=== PATIENT | female | born 1955 | race Caucasian/White ===

== ENCOUNTER 2018-05-17 13:00 | Outpatient (CLI) | payer BC ==
[2018-05-17] MEDS ORDERED: SINCALIDE 5 MCG VIAL ONE (14:05)
[2018-05-17] MEDS ORDERED: SODIUM CHLORIDE 0.9% IV ONE (16:01)
[2018-05-17] MEDS ORDERED: SINCALIDE IV ONE (16:01)
--- NOTE | 2018-05-17 16:26 | Nuclear Medicine Report ---
Reason: POLYP,GALLBLADDER Procedure Date: 05/17/2018 Accession Number: [id number] / [id number] Procedure: NM - Hepatobiliary HIDA w/ Rx CPT Code: FULL RESULT: EXAM: HEPATOBILIARY SCAN WITH CCK/KINEVAC ADMINISTRATION EXAM DATE: 05/17/2018 03:42 PM. CLINICAL HISTORY: POLYP,GALLBLADDER. COMPARISON: None available. TECHNIQUE: Following the intravenous administration of 5.2 mCi of Tc99m Mebrofenin, a hepatobiliary scan was done centered on the liver and gallbladder in multiple sequential images and projections. Following the intravenous administration of 1.45 mcg of CCK/ Kinevac over the course of approximately 60 minutes, dynamic imaging was done and the gallbladder ejection fraction was calculated. FINDINGS: Normal extraction of tracer from the blood pool indicating normal hepatocellular function. The liver size and shape is grossly within normal limits. There is activity visualized in the bile ducts, gallbladder, and small bowel during the first hour. With CCK administration, the gallbladder demonstrates an effective contraction. The gallbladder ejection fraction is calculated to be 92%, well above the lower limit of normal of 38% for a 60-minute injection. The patient reported very little discomfort during CCK administration. No evidence of enteric reflux into the stomach. No significant collection of tracer remaining in the common bile duct by the end of the study. IMPRESSION: 1. Patent cystic duct. 2. Patent common bile duct. 3. Negative for acute or chronic cholecystitis. 4. No enterogastric bile reflux. 5. Gallbladder ejection fraction of 92%. RADIA
== END 2018-05-17 13:01 | disposition home or self-care (01) ==
LOC: DI 13:00
PROVIDERS: ATTEND Family Medicine
DX: K82.8 Other specified diseases of gallbladder (principal)
CPT/HCPCS: 78227; J7040

== ENCOUNTER 2018-11-24 08:00 | Outpatient (CLI) | payer BC ==
[2018-11-24 08:05] LABS: BASOPHILS # (AUTO) 0.1 10^3/uL (0.0-0.1); BASOPHILS % (AUTO) 1.1 %; EOSINOPHILS # (AUTO) 0.2 10^3/uL (0.0-0.7); EOSINOPHILS % (AUTO) 3.2 %; HGB - HEMOGLOBIN 12.4 g/dL (12.0-16.0); LYMPHOCYTES # (AUTO) 1.6 10^3/uL (1.5-3.5); LYMPHOCYTES % (AUTO) 29.3 %; MEAN CORPUSCULAR HEMOGLOBIN 31.2 pg (27.0-31.0); MEAN CORPUSCULAR HGB CONC 33.4 g/dL (32.0-36.0); MEAN CORPUSCULAR VOLUME 93.2 fL (81.0-99.0); MEAN PLATELET VOLUME 9.2 fL (7.9-10.8); MONOCYTES # (AUTO) 0.5 10^3/uL (0.0-1.0); MONOCYTES % (AUTO) 8.8 %; NEUTROPHILS # (AUTO) 3.1 10^3/uL (1.5-6.6); PLT - PLATELET COUNT 260 10^3/uL (130-450); RED BLOOD COUNT 3.98 10^6/uL (4.20-5.40); WHITE BLOOD COUNT 5.4 x10^3/uL (4.8-10.8)
[2018-11-24 08:19] LABS: ALBUMIN 3.8 g/dL (3.2-5.5); ALBUMIN/GLOBULIN RATIO 1.3 (1.0-2.2); ALKALINE PHOSPHATASE 55 IU/L (42-121); ALT ALANINE AMINOTRANSFERASE 24 IU/L (10-60); AST ASPARTATE AMINOTRANSFERASE 22 IU/L (10-42); BILIRUBIN,TOTAL 0.6 mg/dL (0.2-1.0); BUN - BLOOD UREA NITROGEN 18 mg/dL (6-20); CALCIUM 9.7 mg/dL (8.5-10.3); CARBON DIOXIDE - CO2 24 mmol/L (21-32); CHLORIDE 106 mmol/L (101-111); CHOL/HDL RATIO 4.3 (<4.4); CHOLESTEROL 220 mg/dL; CREATININE 0.7 mg/dL (0.4-1.0); GFR - MDRD 84 (>89); GLUCOSE 97 mg/dL (70-100); HDL CHOLESTEROL 51 mg/dL; LDL CHOLESTEROL,CALCULATED 137 mg/dL; LDL/HDL RATIO 2.7 (<4.4); SODIUM 139 mmol/L (135-145); TOTAL PROTEIN 6.7 g/dL (6.7-8.2); VLDL CHOLESTEROL 32 mg/dL
[2018-11-24 08:35] LABS: HB2 TOTAL 12.9 g/dL; HEMOGLOBIN A1C 0.45 g/dL; HEMOGLOBIN A1C % 5.3 % (4.6-6.2)
== END 2018-11-24 23:59 | disposition home or self-care (01) ==
LOC: LAB.WCP 08:00
PROVIDERS: ATTEND Nurse Practitioner
DX: Z00.00 Encounter for general adult medical examination without abnormal findings (principal); E78.5 Hyperlipidemia, unspecified; Z86.39 Personal history of other endocrine, nutritional and metabolic disease
CPT/HCPCS: 36415; 80053; 80061; 83036; 83721; 84443; 85025

== ENCOUNTER 2019-03-21 07:55 | Outpatient (CLI) | payer BC ==
--- NOTE | 2019-03-22 08:57 | Mammography Report ---
Reason: ROUTINE MAMMO Procedure Date: 03/21/2019 Accession Number: [id number] / [id number] Procedure: KAREN - Screening Mammo w/Hi CPT Code: Final Report FULL RESULT: EXAM: Screening Mammo w/Hi DATE: 03/21/2019 8:31 AM CLINICAL HISTORY: Screening encounter. History of late childbearing. History of benign left and right breast biopsy, both excisional type. TECHNIQUE: (B) - Bilateral CC and MLO views were obtained. COMPARISON: 02/10/2012 through 01/20/2010. PARENCHYMAL PATTERN: (D) - The breast(s) demonstrate(s) heterogeneously dense fibroglandular parenchyma. FINDINGS: Bilateral postsurgical changes are stable. There are no suspicious masses, calcifications, or areas of distortion. IMPRESSION: Benign findings. BI-RADS category 2. RECOMMENDATION: (ANNUAL) - Recommend routine annual screening mammography. BI-RADS CATEGORY: (2) - Benign Findings. STANDARD QUALIFYING STATEMENTS: 1. This examination was not reviewed with the aid of Computer-Aided Detection (CAD). 2. A negative or benign imaging report should not preclude biopsy if clinically suspicious findings are present. 3. Dense breasts may obscure an underlying neoplasm. 4. This examination was reviewed with the aid of 3D breast imaging (tomosynthesis).
== END 2019-03-21 07:56 | disposition home or self-care (01) ==
LOC: DI 07:55
DX: Z12.31 Encounter for screening mammogram for malignant neoplasm of breast (principal)
CPT/HCPCS: 77063; 77067

== ENCOUNTER 2019-03-21 07:57 | Outpatient (CLI) | payer BC ==
--- NOTE | 2019-03-21 11:17 | Ultrasound Report ---
Reason: POLYP, GALLBLADDER Procedure Date: 03/21/2019 Accession Number: [id number] / [id number] Procedure: US - Abdomen Limited CPT Code: Final Report FULL RESULT: EXAM: ABDOMEN ULTRASOUND LIMITED, RUQ EXAM DATE: 03/21/2019 08:55 AM. CLINICAL HISTORY: Polyp, gallbladder. COMPARISON: ABD-DETAILED 03/07/2014 8:24 AM. TECHNIQUE: Real-time scanning was performed with static images obtained. FINDINGS: Liver: The parenchyma is mildly echogenic diffusely, new since last exam. No definite focal masses are identified, but evaluation is limited secondary to the echogenicity. 17 cm, previously 14.6 cm. Main portal vein flow: Hepatopetal. Gallbladder: There is a new gallbladder polyp, 3 mm in the anterior body wall. No stones, wall thickening, or sonographic Olivo's sign. Biliary System: CBD measures 6.7 mm. No intrahepatic or extrahepatic ductal dilatation. Other: No ascites. The right kidney measures 10.8 cm in length, with new prominent extrarenal pelvis, 0.8 cm, but no filling defect, renal stone or contour-deforming renal mass. IMPRESSION: 1. A new gallbladder polyp, 3 mm, compatible with a benign lesion and no imaging follow-up is recommended. No cholelithiasis, cholecystitis or bile duct dilatation. 2.New mild Fatty infiltrated liver and new mild hepatomegaly. 3. New prominent right extrarenal pelvis, 0.8 cm, but no filling defect, renal stone or contour deforming renal mass, uncertain clinical significance. If clinical warranted, renal ultrasound follow-up in 3-6 weeks is recommended. RADIA
== END 2019-03-21 07:58 | disposition home or self-care (01) ==
LOC: DI 07:57
PROVIDERS: ATTEND Internal Medicine Gastroenterology
DX: K82.8 Other specified diseases of gallbladder (principal); K76.0 Fatty (change of) liver, not elsewhere classified
CPT/HCPCS: 76705

== ENCOUNTER 2019-09-04 21:38 | Emergency (ER) | payer BC ==
[2019-09-04] MEDS ORDERED: TETANUS/DIPHTHERIA/PERTUSSIS 0.5 ML SYRINGE IM ONE (21:50)
[2019-09-04] MEDS ORDERED: BUFFERED LIDOCAINE 10 ML SYRINGE SUBQ STA (21:50)
--- NOTE | 2019-09-04 21:51 | ED Physician Documentation ---
PD HPI HEAD INJURY - Stated complaint Stated Complaint: LIP LAC - Chief complaint Chief Complaint: Laceration - History obtained from History obtained from: Patient (She was throwing a ball for her dog, her hand got caught on her coat pocket which had her cell phone and it and then her cell phone came up and cut her lip and loosen some lower teeth. This happened just prior to arrival.) Review of Systems Constitutional: denies: Fever, Chills Eyes: denies: Loss of vision, Decreased vision Ears: denies: Loss of hearing, Ear pain Nose: denies: Rhinorrhea / runny nose, Congestion PD PAST MEDICAL HISTORY - Present Medications Home Medications: Ambulatory Orders Medication Instructions Recorded Confirmed Meloxicam [Mobic] 15 mg PO DAILY 09/04/19 09/04/19 estradioL [Estradiol] 2 mg PO DAILY 09/04/19 09/04/19 - Allergies Allergies/Adverse Reactions: Allergies Allergy/AdvReac Type Severity Reaction Status Date / Time No Known Drug Allergies Allergy Verified 09/04/19 21:45 PD ED PE NORMAL - Vitals Vital signs reviewed: Yes - General General: Alert and oriented X 3, No acute distress - HEENT HEENT: Other (She is a 1 cm vertical lip laceration of the lower mid lip on the mucosal surface, not crossing the vermilion border. The lower 2 incisors are just very slightly loose with a small gingival abrasion/laceration.) - Neck Neck: Supple, no meningeal sign, No bony TTP Results - Vitals Vitals: Vital Signs - 24 hr 09/04/19 21:43 Temperature 36.5 C Heart Rate 95 Respiratory 14 Rate Blood Pressure 140/88 H O2 Saturation 95 Oxygen O2 Source Room air Procedures - Laceration (location) lower lip Length in cm: 1 Wound type: Linear, Into muscle Anesthesia: Lidocaine 1%, With bicarb Wound Preparation: Irrigated copiously NS Deep layer closure: Vicryl, size #-0 - enter number (6-0), # sutures - enter number (2) Other: Tetanus booster given Complexity: Simple Departure - Departure Disposition: 01 Home, Self Care Clinical Impression: Laceration of lip Qualifiers: Encounter type: initial encounter Qualified Code(s): S01.511A - Laceration w ithout foreign body of lip, initial encounter Dental trauma Qualifiers: Encounter type: initial encounter Qualified Code(s): S09.93XA - Unspecified injury of face, initial encounter Condition: Good Record reviewed to determine appropriate education?: Yes Instructions: Trauma Dental, ED Laceration Mouth Comments: Liquid diet until you follow-up with your dentist which should be as soon as possible. Return for new or worsening symptoms. Sutures are absorbable and do not require removal.
[2019-09-04 22:17] VITALS: BP 152/81
== END 2019-09-04 22:17 | disposition home or self-care (01) ==
LOC: ED 21:38
DX: S01.511A Laceration without foreign body of lip, initial encounter (principal); S01.512A Laceration without foreign body of oral cavity, initial encounter; K08.89 Other specified disorders of teeth and supporting structures; W22.8XXA Striking against or struck by other objects, initial encounter; Y93.89 Activity, other specified; Z23 Encounter for immunization
CPT/HCPCS: 12011; 90471; 99282; 99283

== ENCOUNTER 2020-02-27 08:30 | Outpatient (CLI) | payer MEDICARE ==
--- NOTE | 2020-02-27 09:28 | DEXA Report ---
PROCEDURE: Dexa Spine and/or Hip INDICATIONS: SCREENING FOR OSTEOPOROSIS TECHNIQUE: Dual energy x-ray absorptiometry (DXA) was performed on a [employer] System. Regions measur ed are the AP Spine, femoral neck, and if needed forearm. COMPARISON: None. FINDINGS: Lumbar Spine: Bone Mineral Density 1.202 g/cm/cm,T score 0.2, normal bone density Left Femoral Neck: Bone Mineral Density 0.769 g/cm/cm, T score -1.9, osteopenia (T score greater or equal to -1.0: NORMAL) (T score from -1.1 to -2.4: OSTEOPENIA) (T score less than or equal to -2.5 to: OSTEOPOROSIS) Impression: OSTEOPENIA. Patient is at increased risk for fracture. Patients with diagnosis of osteoporosis or osteopenia should have regular bone mineral density assess ment. For those eligible for Medicare, routine testing is allowed once every 2 years. Testing frequ ency can be increased for patients who have rapidly progressing disease or for those who are receivin g medical therapy to restore bone mass. Reviewed by: Jude Dickerson MD on 02/27/2020 9:27 AM PST Approved by: Jude Dickerson MD on 02/27/2020 9:27 AM PST Station ID: [id number]
== END 2020-02-27 08:31 | disposition home or self-care (01) ==
LOC: DI 08:30
PROVIDERS: ATTEND Physician Assistant
DX: Z13.820 Encounter for screening for osteoporosis (principal); M85.88 Other specified disorders of bone density and structure, other site
CPT/HCPCS: 77080

== ENCOUNTER 2020-05-26 14:00 | Outpatient (CLI) | payer MEDICARE ==
--- NOTE | 2020-05-27 13:48 | Mammography Report ---
BILATERAL DIGITAL SCREENING MAMMOGRAM 3D/2D: 05/26/2020 CLINICAL: Routine screening. Family history of breast cancer. Comparison is made to exams dated: 02/10/2012 mammogram and 03/21/2019 mammogram - [facility]. The tissue of both breasts is heterogeneously dense. This may lower the sensitivity of m ammography. There are benign post operative findings in both breasts. No significant masses, calcifications, or other findings are seen in either breast. There has been no significant interval change. IMPRESSION: BENIGN There is no mammographic evidence of malignancy. A 1 year screening mammogram is recommended. This exam was interpreted at Station ID: [id number]. NOTE: For mammograms, a report in lay terms will be sent to the patient. Approximately 15% of breast malignancies will not be visualized mammographically. In the management of a palpable breast mass, a negative mammogram must not discourage biopsy of a clinically suspicious lesion. Electronically Signed By: Stu jasso/sharita:05/26/2020 14:55:49 ACR BI-RADS Category 2: Benign Finding(s) 3342F PARENCHYMAL PATTERN: (D) - The breast(s) demonstrate(s) heterogeneously dense fibroglandular franco gibson. BI-RADS CATEGORY: (2) - 2 RECOMMENDATION: (ANNUAL) - Recommend routine annual screening mammography. [id number] 1 year screening LATERALITY: (B)
== END 2020-05-26 14:01 | disposition home or self-care (01) ==
LOC: DI 14:00
DX: Z12.31 Encounter for screening mammogram for malignant neoplasm of breast (principal); Z80.3 Family history of malignant neoplasm of breast